=== PATIENT | female | born 1990 | race Two or more races ===

== ENCOUNTER 2023-05-31 21:38 | Emergency (ER) | payer MEDICAID ==
[~2023-05-31] VITALS: Ht 157.5 cm; Wt 84.0 kg
[2023-05-31] MEDS ORDERED: AMPICILLIN & SULBACTAM SODIUM 3 GM in SODIUM CHL 0.9% 100 ML IV SCH (22:30)
[2023-05-31 22:47] LABS: Basophils # (auto) 0 10 ^3/uL (0-0.2); Basophils % (auto) 0.4 % (0.0-2.0); Eosinophils # (auto) 0.1 10 ^3/uL (0-0.8); Eosinophils % (auto) 1.3 % (0.0-7.0); Hematocrit 27.7 % (36.0-46.0); Hemoglobin 8.6 g/dL (12.2-16.2); Lymphocytes # (auto) 1.7 10 ^3/uL (0.4-5.4); Lymphocytes % (auto) 21.7 % (10.0-50.0); Mean Corpuscular Hemoglobin 22.1 pg (28.0-32.0); Mean Corpuscular Volume 71.2 fL (80.0-100.0); Monocytes # (auto) 0.9 10 ^3/uL (0-1.3); Monocytes % (auto) 11.2 % (0.0-12.0); Neutrophils # (auto) 5.1 10 ^3/uL (1.6-8.6); Neutrophils % (auto) 65.4 % (37.0-80.0); Red Blood Cells 3.89 10^6/uL (4.0-5.20); Red Cell Distribution Width 16.6 % (11.8-14.3); White Blood Cell 7.7 10^3/uL (4.4-10.8)
[2023-05-31] MEDS ORDERED: metroNIDAZOLE 500MG/100ML 100 ML IV ONE (23:00)
[2023-05-31] MEDS ORDERED: cefTRIAXone 1GM/50ML D5W 50 ML IV ONE (23:00)
[2023-05-31 23:17] LABS: Albumin 2.9 g/dL (3.4-5.0); Calcium 7.7 mg/dL (8.5-10.1); Potassium 3.5 mmol/L (3.5-5.1)
[2023-05-31 23:19] VITALS: BP 118/71
[2023-05-31 23:19] LABS: BUN/Creatinine Ratio 29.1 (10.0-20.0)
[2023-05-31 23:22] LABS: Bilirubin, Total 0.4 mg/dL (0.2-1.0); Total Protein 6.5 g/dL (6.4-8.2)
[2023-06-01] MEDS ORDERED: IOHEXOL 350 MG/ML 100ML IJ ONE (00:19)
== END 2023-06-01 01:50 | disposition left against medical advice (07) ==
LOC: ER 21:38
DX: K04.7 Periapical abscess without sinus (principal)
CPT/HCPCS: 36415; 70487; 80053; 83605; 85025; 85652; 96365; 96368; 99285; J0696; J3490; Q9967

== ENCOUNTER 2024-02-06 15:15 | Inpatient (IN) | payer BC, MEDICAID ==
[~2024-02-06] VITALS: Ht 154.9 cm; Wt 88.0 kg
[2024-02-06 16:11] LABS: Basophils # (auto) 0.1 10 ^3/uL (0-0.2); Basophils % (auto) 0.8 % (0.0-2.0); Eosinophils # (auto) 0.1 10 ^3/uL (0-0.8); Eosinophils % (auto) 1.5 % (0.0-7.0); Hematocrit 26.5 % (36.0-46.0); Hemoglobin 7.6 g/dL (12.2-16.2); Lymphocytes # (auto) 2.6 10 ^3/uL (0.4-5.4); Lymphocytes % (auto) 33.8 % (10.0-50.0); Mean Corpuscular Hemoglobin 16.9 pg (28.0-32.0); Mean Corpuscular Hgb Conc. 28.6 g/dL (32.0-36.0); Mean Corpuscular Volume 59.1 fL (80.0-100.0); Monocytes # (auto) 0.7 10 ^3/uL (0-1.3); Monocytes % (auto) 9.3 % (0.0-12.0); Neutrophils # (auto) 4.3 10 ^3/uL (1.6-8.6); Neutrophils % (auto) 54.6 % (37.0-80.0); Red Blood Cells 4.49 10^6/uL (4.0-5.20); Red Cell Distribution Width 19.3 % (11.8-14.3); White Blood Cell 7.8 10^3/uL (4.4-10.8)
[2024-02-06 16:30] LABS: Alanine Aminotransferase 14 U/L (7-40); Albumin 4.6 g/dL (3.2-4.8); Alkaline Phosphatase 98 U/L (46-116); Anion Gap 6 (5-15); Aspartate Aminotransferase 18 U/L (13-40); BUN/Creatinine Ratio 21.2 (10.0-20.0); Bilirubin, Total 0.3 mg/dL (0.2-1.0); Blood Urea Nitrogen 14 mg/dL (9-23); Calcium 9.2 mg/dL (8.5-10.1); Carbon Dioxide 26 mmol/L (20-30); Chloride 104 mmol/L (98-107); Glucose 86 mg/dL (74-106); Potassium 4.2 mmol/L (3.5-5.1); Sodium 136 mmol/L (136-145); Total Protein 7.5 g/dL (5.7-8.2)
[2024-02-06 16:53] LABS: Lipase 40 U/L (12-53)
[2024-02-06 16:56] LABS: Anisocytosis Slight; Hypochromia Marked; Platelet Estimate Adequate; Target Cell FEW
[2024-02-06 18:22] LABS: Urine Bacteria FEW /hpf (None Seen); Urine Blood Negative /uL (Negative); Urine Clarity HAZY (Clear); Urine Color Colorless (Yellow); Urine Mucus FEW (None Seen); Urine Protein, UAD Negative (Negative); Urine Specific Gravity 1.007 (1.001-1.035); Urine Urobilinogen Normal (Negative); Urine WBC 11 /hpf (0 - 5); Urine pH 5.5 (5.0-8.0)
[2024-02-06 18:27] LABS: Amphetamine Screen, Urine Neg (NEGATIVE); Barbiturate Scree,Urine Neg (NEGATIVE); Benzodiazephine Screen, Urine Neg (NEGATIVE); Cannabinoid Screen, Urine Pos (NEGATIVE); Cocaine Screen, Urine Neg (NEGATIVE); Opiate Scree,Urine Neg (NEGATIVE); Phencyclidine Screen, Urine Neg (NEGATIVE)
[2024-02-06] MEDS ORDERED: CIPR-173 PO (19:43)
[2024-02-06] MEDS: SODIUM CHLORIDE 0.9% 1,000 ML IV ONE (22:27)
[2024-02-06 22:51] LABS: Hematocrit 23.3 % (36.0-46.0)
[2024-02-06 23:03] LABS: Hemoglobin 6.6 g/dL (12.2-16.2)
[2024-02-06] MEDS: ONDANSETRON HCL 4 MG/2 ML VIAL IV ONE (23:08)
[2024-02-06] MEDS: CIPROFLOXACIN HCL 500 MG TAB PO ONE (23:14)
[2024-02-06] MEDS ORDERED: DOCUSATE SOD 100 MG CAP PO PRN (23:15)
[2024-02-06] MEDS ORDERED: MORPHINE SULFATE INJ 2 MG/ml SYRG IV PRN ×2 (23:15)
[2024-02-06] MEDS ORDERED: HYDROcodone-ACET 5/325MG TAB PO PRN (23:15)
[2024-02-06] MEDS ORDERED: ONDANSETRON HCL 4 MG/2 ML VIAL IV PRN (23:15)
[2024-02-06] MEDS ORDERED: NITROGLYCERIN 0.4 MG SL TAB SL PRN (23:15)
[2024-02-07] VITALS (11 sets, daily range): BP systolic 90–114; BP diastolic 44–68; PULSE 62–83; RESP 15–21; TEMP 98–98.4; O2SAT 77–99
[2024-02-07 00:09] LABS: % Iron Saturation 3.4 % (15-50)
[2024-02-07 00:13] LABS: Folate (Folic Acid) > 24.00 ng/mL (>5.38)
[2024-02-07] MEDS: LACTULOSE 20Gm/30ML SOLN PO ONE (04:00)
[2024-02-07] MEDS: metroNIDAZOLE 500MG/100ML 100 ML IV SCH (07:06)
[2024-02-07 08:49] LABS: Alanine Aminotransferase 12 U/L (7-40); Albumin 3.5 g/dL (3.2-4.8); Alkaline Phosphatase 78 U/L (46-116); Anion Gap 4 (5-15); Aspartate Aminotransferase 15 U/L (13-40); BUN/Creatinine Ratio 20.3 (10.0-20.0); Bilirubin, Total 0.5 mg/dL (0.2-1.0); Blood Urea Nitrogen 12 mg/dL (9-23); Calcium 8.4 mg/dL (8.5-10.1); Carbon Dioxide 25 mmol/L (20-30); Chloride 110 mmol/L (98-107); Glucose 90 mg/dL (74-106); Potassium 3.9 mmol/L (3.5-5.1); Sodium 139 mmol/L (136-145); Total Protein 5.8 g/dL (5.7-8.2)
[2024-02-07 09:20] LABS: Basophils # (auto) 0 10 ^3/uL (0-0.2); Eosinophils # (auto) 0.1 10 ^3/uL (0-0.8); Eosinophils % (auto) 1.2 % (0.0-7.0); Hemoglobin 7.4 g/dL (12.2-16.2); Mean Corpuscular Volume 61.9 fL (80.0-100.0); Monocytes # (auto) 0.6 10 ^3/uL (0-1.3); Monocytes % (auto) 9.4 % (0.0-12.0); Nucleated Red Blood Cells % 0.1 %
[2024-02-07 09:21] LABS: Basophils % (auto) 0.7 % (0.0-2.0); Hematocrit 24.8 % (36.0-46.0); Lymphocytes % (auto) 31.8 % (10.0-50.0); Mean Corpuscular Hemoglobin 18.5 pg (28.0-32.0); Mean Corpuscular Hgb Conc. 29.8 g/dL (32.0-36.0); Neutrophils # (auto) 3.5 10 ^3/uL (1.6-8.6); Neutrophils % (auto) 56.9 % (37.0-80.0); Red Blood Cells 4.01 10^6/uL (4.0-5.20); Red Cell Distribution Width 21.7 % (11.8-14.3); White Blood Cell 6.2 10^3/uL (4.4-10.8)
[2024-02-07] MEDS: cefTRIAXone 1GM/50ML D5W 50 ML IV SCH (09:29)
[2024-02-07] MEDS: PANTOPRAZOLE 40 MG/10 ML VIAL INJ IV SCH (09:29)
[2024-02-07] MEDS: LACTULOSE 20Gm/30ML SOLN PO SCH (09:30)
[2024-02-07 11:13] LABS: INR 1.05 (0.9-1.15); Partial Thromboplastin Time 28.3 SEC (24.5-34.5)
[2024-02-07 11:21] LABS: Magnesium 1.8 mg/dL (1.6-2.6)
[2024-02-07] MEDS: IRON SUCROSE COMPLEX 100 ML IV SCH (12:29)
[2024-02-07] MEDS: ACETAMINOPHEN 325 MG TAB PO PRN (20:25)
[2024-02-08] VITALS (11 sets, daily range): BP systolic 94–116; BP diastolic 41–61; PULSE 58–87; RESP 18–20; TEMP 98.1–98.2; O2SAT 93–99
[2024-02-08 06:54] LABS: Basophils # (auto) 0 10 ^3/uL (0-0.2); Eosinophils # (auto) 0.2 10 ^3/uL (0-0.8); Hemoglobin 8.1 g/dL (12.2-16.2); Lymphocytes # (auto) 1.1 10 ^3/uL (0.4-5.4); Mean Corpuscular Hemoglobin 17.9 pg (28.0-32.0); Mean Corpuscular Volume 62.3 fL (80.0-100.0); Monocytes # (auto) 0.4 10 ^3/uL (0-1.3)
[2024-02-08 06:57] LABS: Basophils % (auto) 0.6 % (0.0-2.0); Eosinophils % (auto) 4.1 % (0.0-7.0); Hematocrit 28.1 % (36.0-46.0); Mean Corpuscular Hgb Conc. 28.8 g/dL (32.0-36.0); Monocytes % (auto) 8.7 % (0.0-12.0); Neutrophils # (auto) 3.1 10 ^3/uL (1.6-8.6); Neutrophils % (auto) 63.6 % (37.0-80.0); Nucleated Red Blood Cells % 0.1 %; Red Blood Cells 4.51 10^6/uL (4.0-5.20); White Blood Cell 4.8 10^3/uL (4.4-10.8)
[2024-02-08 07:02] LABS: Red Cell Distribution Width 21.3 % (11.8-14.3)
[2024-02-08 07:15] LABS: Alanine Aminotransferase 13 U/L (7-40); Albumin 3.8 g/dL (3.2-4.8); Alkaline Phosphatase 91 U/L (46-116); Anion Gap 8 (5-15); Aspartate Aminotransferase 20 U/L (13-40); BUN/Creatinine Ratio 10.2 (10.0-20.0); Blood Urea Nitrogen 6 mg/dL (9-23); Calcium 8.6 mg/dL (8.5-10.1); Carbon Dioxide 23 mmol/L (20-30); Chloride 110 mmol/L (98-107); Glucose 75 mg/dL (74-106); Potassium 3.8 mmol/L (3.5-5.1); Sodium 141 mmol/L (136-145)
[2024-02-08 07:16] LABS: Bilirubin, Total 0.6 mg/dL (0.2-1.0); Total Protein 6.3 g/dL (5.7-8.2)
[2024-02-08] MEDS ORDERED: SODIUM CHLORIDE LOCK 10 ML ONE (09:17)
[2024-02-08] MEDS ORDERED: diphenhdrAMINE HCL 50 MG/1 ML VL ONE (09:18)
[2024-02-08] MEDS ORDERED: FLUMAZENIL 0.1 MG/ML INJ 10ML MDV IV ONE (09:19)
[2024-02-08] MEDS ORDERED: NALOXONE HCL 0.4 MG/ML VIAL ONE (09:19)
[2024-02-08] MEDS ORDERED: LIDOCAINE VISCOUS 2% 15ML UD ONE (09:19)
[2024-02-08] MEDS: fentaNYL CITRATE 100 MCG/2 ML VL ONE (14:04)
[2024-02-08] MEDS: MIDAZOLAM HCL 5 MG/ML-1ML VIAL ONE (14:04)
[2024-02-08] MEDS: metroNIDAZOLE 500 MG TAB PO SCH (21:17)
[2024-02-08] MEDS: SUCRALFATE 1 GM TAB PO SCH (21:17)
[2024-02-09] VITALS (8 sets, daily range): BP systolic 97–112; BP diastolic 40–72; PULSE 20–82; RESP 16–20; TEMP 97.3–98.4; O2SAT 93–100
[2024-02-09 06:40] LABS: Basophils # (auto) 0 10 ^3/uL (0-0.2); Eosinophils # (auto) 0.2 10 ^3/uL (0-0.8); Hematocrit 23.8 % (36.0-46.0); Lymphocytes # (auto) 1.4 10 ^3/uL (0.4-5.4); Mean Corpuscular Hemoglobin 18.1 pg (28.0-32.0); Neutrophils # (auto) 2.7 10 ^3/uL (1.6-8.6); Nucleated Red Blood Cells % 0.2 %; White Blood Cell 4.9 10^3/uL (4.4-10.8)
[2024-02-09 06:44] LABS: Basophils % (auto) 0.4 % (0.0-2.0); Eosinophils % (auto) 3.9 % (0.0-7.0); Mean Corpuscular Hgb Conc. 29.3 g/dL (32.0-36.0); Mean Corpuscular Volume 61.8 fL (80.0-100.0); Monocytes # (auto) 0.6 10 ^3/uL (0-1.3); Monocytes % (auto) 11.8 % (0.0-12.0); Neutrophils % (auto) 55.9 % (37.0-80.0); Red Blood Cells 3.86 10^6/uL (4.0-5.20)
[2024-02-09 06:55] LABS: Alanine Aminotransferase 12 U/L (7-40); Albumin 3.3 g/dL (3.2-4.8); Alkaline Phosphatase 81 U/L (46-116); Anion Gap 6 (5-15); Aspartate Aminotransferase 19 U/L (13-40); BUN/Creatinine Ratio 11.1 (10.0-20.0); Bilirubin, Total 0.3 mg/dL (0.2-1.0); Blood Urea Nitrogen 6 mg/dL (9-23); Calcium 8.3 mg/dL (8.5-10.1); Carbon Dioxide 23 mmol/L (20-30); Chloride 111 mmol/L (98-107); Glucose 69 mg/dL (74-106); Potassium 3.6 mmol/L (3.5-5.1); Sodium 140 mmol/L (136-145); Total Protein 5.4 g/dL (5.7-8.2)
[2024-02-09 07:20] LABS: Red Cell Distribution Width 21.1 % (11.8-14.3)
[2024-02-09 08:01] LABS: Platelet Estimate Adequate
[2024-02-09 08:02] LABS: Anisocytosis Slight; Hypochromia Marked
[2024-02-09] MEDS ORDERED: VANCOMYCIN PER PHARMACY 0 MG IV SCH (11:00)
[2024-02-09] MEDS ORDERED: VANCOMYCIN 1GM/200ML 200 ML IV ONE (11:00)
[2024-02-09 13:22] LABS: Hematocrit 25.7 % (36.0-46.0); Hemoglobin 7.3 g/dL (12.2-16.2)
[2024-02-09] MEDS: LINEZOLID 600MG/300ML 300 ML IV SCH (15:22)
[2024-02-09] MEDS: PANTOPRAZOLE 40 MG/10 ML VIAL INJ IV ONE (15:22)
[2024-02-09] MEDS: SUCRALFATE 1 GM/10 ML ORAL SUSP PO ONE (15:22)
[2024-02-10 01:00] VITALS: BP 99/49; PULSE 68; RESP 18; TEMP 98.1; O2SAT 97
[2024-02-10 05:00] VITALS: BP 99/58; PULSE 64; RESP 16; TEMP 98; O2SAT 98
[2024-02-10 06:17] LABS: Basophils # (auto) 0 10 ^3/uL (0-0.2); Basophils % (auto) 0.6 % (0.0-2.0); Lymphocytes # (auto) 1.6 10 ^3/uL (0.4-5.4); Mean Corpuscular Volume 62.6 fL (80.0-100.0); Monocytes # (auto) 0.5 10 ^3/uL (0-1.3)
[2024-02-10 06:24] LABS: Eosinophils # (auto) 0.2 10 ^3/uL (0-0.8); Eosinophils % (auto) 2.5 % (0.0-7.0); Hematocrit 23.9 % (36.0-46.0); Hemoglobin 7.3 g/dL (12.2-16.2); Mean Corpuscular Hgb Conc. 30.4 g/dL (32.0-36.0); Monocytes % (auto) 7.5 % (0.0-12.0); Neutrophils # (auto) 4.2 10 ^3/uL (1.6-8.6); Neutrophils % (auto) 64.4 % (37.0-80.0); Nucleated Red Blood Cells % 0.2 %; Red Blood Cells 3.83 10^6/uL (4.0-5.20); Red Cell Distribution Width 21.4 % (11.8-14.3); White Blood Cell 6.5 10^3/uL (4.4-10.8)
[2024-02-10 06:35] LABS: Albumin 3.3 g/dL (3.2-4.8); Alkaline Phosphatase 75 U/L (46-116); Anion Gap 7 (5-15); Aspartate Aminotransferase 14 U/L (13-40); BUN/Creatinine Ratio 11.7 (10.0-20.0); Bilirubin, Total 0.3 mg/dL (0.2-1.0); Blood Urea Nitrogen 7 mg/dL (9-23); Calcium 8.3 mg/dL (8.7-10.4); Carbon Dioxide 23 mmol/L (20-30); Chloride 109 mmol/L (98-107); Glucose 82 mg/dL (74-106); Magnesium 1.8 mg/dL (1.6-2.6); Potassium 3.8 mmol/L (3.5-5.1); Sodium 139 mmol/L (136-145); Total Protein 5.7 g/dL (5.7-8.2)
[2024-02-10 06:36] LABS: Alanine Aminotransferase < 9 U/L (7-40)
[2024-02-10 06:56] LABS: Erythrocyte Sedimentation Rate 17 mm/hr (0-20)
[2024-02-10 07:38] LABS: Anisocytosis Slight; Hypochromia Marked; Platelet Estimate Adequate
[2024-02-10 07:40] LABS: Target Cell FEW
[2024-02-10 08:00] VITALS: PULSE 76
[2024-02-10 09:00] VITALS: BP 98/49; PULSE 100; RESP 18; TEMP 98.3; O2SAT 98
[2024-02-10] MEDS: IOHEXOL 300 MG/ML 100ML BOTTLE IJ ONE (10:45)
[2024-02-10 11:49] VITALS: BP 104/60; PULSE 58; RESP 18; TEMP 98.4; O2SAT 96
[2024-02-10] MEDS ORDERED: BACDST PO (14:23)
[2024-02-10] MEDS ORDERED: SUCR1TAB PO (14:23)
[2024-02-10] MEDS ORDERED: PANT40TA2 PO (14:23)
[2024-02-10] MEDS ORDERED: FER325T PO (14:23)
[2024-02-10] MEDS ORDERED: LINE1TAB6 PO (16:03)
[2024-02-10 17:00] VITALS: BP 118/67; PULSE 61; RESP 18; TEMP 98.5; O2SAT 96
== END 2024-02-10 18:26 | disposition home or self-care (01) | DRG 391 ==
LOC: ER 15:15 → TELE 23:38 → TELE-WESTW 23:38
PROVIDERS: ADMIT Internal Medicine; ATTEND Internal Medicine
PROC: 30233N1 Transfusion of Nonautologous Red Blood Cells into Peripheral Vein, Percutaneous Approach (ICD-10-PCS; principal; 2024-02-07)
PROC: 0DJ08ZZ Inspection of Upper Intestinal Tract, Via Natural or Artificial Opening Endoscopic (ICD-10-PCS; 2024-02-08)
DX: K52.9 Noninfective gastroenteritis and colitis, unspecified (principal); K25.4 Chronic or unspecified gastric ulcer with hemorrhage; N30.00 Acute cystitis without hematuria; K59.00 Constipation, unspecified; F17.290 Nicotine dependence, other tobacco product, uncomplicated; D50.9 Iron deficiency anemia, unspecified; B95.62 Methicillin resistant Staphylococcus aureus infection as the cause of diseases classified elsewhere; I88.0 Nonspecific mesenteric lymphadenitis; E66.9 Obesity, unspecified; I10 Essential (primary) hypertension; Z98.84 Bariatric surgery status; Z90.49 Acquired absence of other specified parts of digestive tract; Z83.3 Family history of diabetes mellitus; Z82.49 Family history of ischemic heart disease and other diseases of the circulatory system; Z88.2 Allergy status to sulfonamides; Z68.36 Body mass index [BMI] 36.0-36.9, adult
CPT/HCPCS: 36415; 43235; 71045; 74177; 80053; 80061; 80307; 81001; 82150; 82270; 82607; 82728; 82746; 83010; 83540; 83550; 83605; 83615; 83690; 83735; 84443; 84484; 84702; 85014; 85018; 85025; 85045; 85048; 85610; 85652; 85730; 86141; 86850; 86900; 86901; 86920; 87086; 93005; 93971; 96360; C9113; G0378; J1756; J2250; J3490

== ENCOUNTER 2025-09-11 14:44 | Emergency (ER) | payer BC, MEDICAID, OTHER ==
[~2025-09-11] VITALS: Ht 157.5 cm; Wt 86.3 kg
[~2025-09-11 14:44] MED LIST: FER325T PO; LINE1TAB6 PO; PANT40TA2 PO; SUCR1TAB PO
[2025-09-11 14:45] VITALS: BP 122/76; RESP 20; TEMP 99.2; O2SAT 100
--- NOTE | 2025-09-11 14:56 | ECG ---
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
[2025-09-11 14:58] VITALS: PULSE 79
--- NOTE | 2025-09-11 14:58 | ED.PDOC ---
HPI Comments This is a 35 year old female presenting to the ED with chief complaint of palpitations. Patient reports that she began to experience substernal chest pressure since earlier today along with associated SOB and palpitations for the past 2 weeks. Patient relays that she has had previous episodes of palpitations. Patient denies any N/V, abdominal pain, cough, dizziness, fever, chills, or anxiety. Chief Complaint: Palpitations Time Seen by MD: 14:55 Primary Care Provider: Unknown Reviewed Notes: Nurses Notes, Medications, Allergies Allergies: Coded Allergies: Sulfa Antibiotics (Verified Allergy, Unknown, General body itchiness, 02/07/24) Home Meds Active Scripts Linezolid (Zyvox) 600 Mg Tab, 600 MG PO BID for 7 Days, #14 TAB Prov:MYRNA RENEE [facility] 02/10/24 Pantoprazole Sodium Sesquihydr (Protonix) 40 Mg Tab, 40 MG PO BID for 14 Days, #28 TAB Prov:MYRNA RENEE [facility] 02/10/24 Ferrous Sulfate (FERROUS SULFATE) 325 Mg Tb, 1 TAB PO BID for 30 Days, #60 TAB 3 Refills Prov:MYRNA RENEE [facility] 02/10/24 Sucralfate (Sucralfate) 1 Gm Tab, 1 GM PO QIDACHS for 30 Days, #120 TAB 2 Refills Prov:NI JARVISMYRNA TURCIOS [facility] 02/10/24 Information Source: Patient Mode of Arrival: Ambulatory Severity: Moderate Timing: Days Duration: Since onset Prehospital treatment: None Location: Substernal Radiation: No Radiation Quality: Pressure Onset: At Rest Cardiac Risk Factors: Family History PE Risk Factors: None History of: None Associated Signs and Symptoms: SOB, Palpitations Past Medical History PAST MEDICAL HISTORY: Denies Surgical History (Other): 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 History Family History Family History: Reviewed,noncontributory to illness, Family hx of DM, Family hx of Cancer, Family hx of HTN Social History Smoker: Other (Vapes) Alcohol: Denies ETOH Use Drugs: Marijuana Lives In: Home Constitutional: denies: chills, diaphoresis, fatigue, fever, malaise, sweats, weakness, others EENTM: denies: blurred vision, double vision, ear bleeding, ear discharge, ear drainage, ear pain, ear ringing, eye pain, eye redness, hearing loss, mouth pain, mouth swelling, nasal discharge, nose bleeding, nose congestion, nose pain, photophobia, tearing, throat pain, throat swelling, voice changes, others Respiratory: reports: shortness of breath; denies: cough, hemoptysis, orthopnea, SOB at rest, SOB with excertion, stridor, wheezing, others Cardiovascular: reports: chest pain, palpitations; denies: dizzy spells, diaphoresis, Dyspnea on exertion, edema, irregular heart beat, left arm pain, lightheadedness, PND, syncope, others Gastrointestinal: denies: abdomen distended, abdominal pain, blood streaked bowels, constipated, diarrhea, dysphagia, difficulty swallowing, hematemesis, melena, nausea, poor appetite, poor fluid intake, rectal bleeding, rectal pain, vomiting, others Genitourinary: denies: abnormal vagina bleeding, burning, dyspareunia, dysuria, flank pain, frequency, hematuria, incontinence, pain, , vagina discharge, urgency, others Neurological: denies: dizziness, fainting, headache, left sided numbness, left sided weakness, numbness, paresthesia, pre-existing deficit, right sided numbness, right sided weakness, seizure, speech problems, tingling, tremors, weakness, others Musculoskeletal: denies: back pain, gout, joint pain, joint swelling, muscle pain, muscle stiffness, neck pain, others Integumetry: denies: bruises, change in color, change in hair/nails, dryness, laceration, lesions, lumps, rash, wounds, others Allergic/Immunocompromised: denies: Difficulty Healing, Frequent Infections, Hives, Itching, others Hematologic/Lymphatic: denies: anemia, blood clots, easy bleeding, easy bruising, swollen glands, others Endocrine: denies: excessive hunger, excessive sweating, excessive thirst, excessive urination, flushing, intolerance to cold, intolerance to heat, unexplained weight gain, unexplained weight loss, others Psychiatric: denies: anxiety, bipolar disorder, depression, hopeless, panic disorder, schizophrenia, sleepless, suicidal, others All Other Systems: Reviewed and Negative Physical Exam General Appearance: No Apparent Distress HEENT: Normal ENT Inspection, Pharynx Normal, TMs Normal Neck: Full Range of Motion, Non-Tender, Normal, Normal Inspection Respiratory: Chest Non-Tender, Lungs Clear, No Accessory Muscle Use, No Respiratory Distress, Normal Breath Sounds Cardiovascular: No Edema, No JVD, No Murmur, No Gallop, Normal Peripheral Pulses, Regular Rate/Rhythm Breast Exam: Deferred Gastrointestinal: No Organomegaly, Non Tender, No Pulsatile Mass, Normal Bowel Sounds, Soft Genitalia: Deferred Pelvic: Deferred Rectal: Deferred Extremities: No calf tenderness, Normal capillary refill, Normal inspection, Normal range of motion, Non-tender, No pedal edema Musculoskeletal : Apperance: Normal Neurologic: Alert, 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 Was a procedure done?: No CP Differential Dx Differential Diagnosis: Angina, IL, PAC's X-Ray, Labs, Meds, VS Vital Signs Date Time Temp Pulse Resp B/P (MAP) Pulse Ox O2 Delivery O2 Flow Rate FiO2 09/11/25 14:58 79 09/11/25 14:52 79 09/11/25 14:45 99.2 70 20 122/76 100 99.2 Lab Test 09/11/25 15:48 09/11/25 15:05 Range/Units Troponin I High Sensitivity < 3 L < 3 L </=34 ng/L White Blood Count 8.1 4.4-10.8 10^3/uL Red Blood Count 4.37 4.0-5.20 10^6/uL Hemoglobin 8.0 L 12.2-16.2 g/dL Hematocrit 26.5 L 36.0-46.0 % Mean Corpuscular Volume 60.7 L 80.0-100.0 fL Mean Corpuscular Hemoglobin 18.3 L 28.0-32.0 pg Mean Corpuscular Hemoglobin Concent 30.1 L 32.0-36.0 g/dL Red Cell Distribution Width 18.8 H 11.8-14.3 % Platelet Count 367 140-450 10^3/uL Mean Platelet Volume 8.5 6.9-10.8 fL Neutrophils (%) (Auto) 66.6 37.0-80.0 % Lymphocytes (%) (Auto) 24.2 10.0-50.0 % Monocytes (%) (Auto) 6.4 0.0-12.0 % Eosinophils (%) (Auto) 2.0 0.0-7.0 % Basophils (%) (Auto) 0.8 0.0-2.0 % Neutrophils # (Auto) 5.4 1.6-8.6 10 ^3/uL Lymphocytes # (Auto) 2.0 0.4-5.4 10 ^3/uL Monocytes # (Auto) 0.5 0-1.3 10 ^3/uL Eosinophils # (Auto) 0.2 0-0.8 10 ^3/uL Basophils # (Auto) 0.1 0-0.2 10 ^3/uL Nucleated Red Blood Cells 0.1 % Sodium Level 141 136-145 mmol/L Potassium Level 4.7 3.5-5.1 mmol/L Chloride Level 106 98-107 mmol/L Carbon Dioxide Level 26 20-31 mmol/L Anion Gap 9 5-15 Blood Urea Nitrogen 11 9-23 mg/dL Creatinine 0.78 0.550-1.02 mg/dL Glomerular Filtration Rate Calc 102 >90 mL/min BUN/Creatinine Ratio 14.1 10.0-20.0 Serum Glucose 105 74-106 mg/dL Calcium Level 8.7 8.7-10.4 mg/dL The patient had a CBC showing anemia with a hemoglobin of 8.0 and hematocrit 26.5 The chemistry panel is within normal limits At this time, the patient has eloped from the department's. We are attempting to get a chest x-ray but the patient has eloped Images Reviewed?: Images reviewed and evaluated by me Time of 1ST Reevaluation: 19:06 Reevaluation 1ST: The patient has eloped fr Patient Education/Counseling: Diagnosis, Treatment, Prognosis Family Education/Counseling: No Family Present SEPSIS Sepsis Screen Date sepsis recognized/suspect: Sep 11, 2025 Time Sepsis recognized/suspect: 6 Recent Procedure: No On Antibiotic Therapy: No Respiratory Rate >20: No Heart Rate >90: No Temp<36 C (96.8 F) or >38.3 C: No SBP <90 or MAP <65 mmHG: No New Acute Mental Status Change: No Is the patient on CPAP, BIPAP,: No Physician Orders Chest Two Views Routine (10/16/25 14:51) Urinalysis (09/11/25 14:51) Test, Urine (09/11/25 14:51) Vital Signs Date Time Temp Pulse Resp B/P (MAP) Pulse Ox O2 Delivery O2 Flow Rate FiO2 09/11/25 14:58 79 09/11/25 14:52 79 09/11/25 14:45 99.2 70 20 122/76 100 99.2 Laboratory Tests Test 09/11/25 15:05 White Blood Count 8.1 10^3/uL (4.4-10.8) Departure 1 Departure Time of Disposition: 19:06 Impression: Primary Impression: Palpitations Disposition: 07 LEFT AWOL/ELOPED Condition: Fair Critical Care Note Critical Care Time?: No Stability Stability form required: No Heart Score Heart Score: Heart Score Response (Comments) Value History Moderate Suspicious 1 EKG Normal 0 Age <45 0 Risk Factors No known risk factors 0 Troponin Normal limit 0 Total 1 I personally scribed for ONEIDA BRITTON MD ([email or web address]) on 09/11/25 at 14:58. Electronically submitted by Heron Sexton ([email or web address]). ONEIDA BRITTON MD Sep 11, 2025 14:58
[2025-09-11 15:16] LABS: Nucleated Red Blood Cells % 0.1 %
[2025-09-11 15:17] LABS: Hematocrit 26.5 % (36.0-46.0); Hemoglobin 8.0 g/dL (12.2-16.2); Mean Corpuscular Hemoglobin 18.3 pg (28.0-32.0); Mean Corpuscular Volume 60.7 fL (80.0-100.0)
[2025-09-11 15:26] LABS: Chloride 106 mmol/L (98-107); Potassium 4.7 mmol/L (3.5-5.1); Sodium 141 mmol/L (136-145)
[2025-09-11 15:27] LABS: Anion Gap 9 (5-15); Calcium 8.7 mg/dL (8.7-10.4); Carbon Dioxide 26 mmol/L (20-31)
[2025-09-11 15:32] LABS: BUN/Creatinine Ratio 14.1 (10.0-20.0); Blood Urea Nitrogen 11 mg/dL (9-23); Glucose 105 mg/dL (74-106)
== END 2025-09-11 19:20 | disposition left against medical advice (07) ==
LOC: ER 14:44
DX: R00.2 Palpitations (principal); F12.90 Cannabis use, unspecified, uncomplicated; F17.290 Nicotine dependence, other tobacco product, uncomplicated; Z79.899 Other long term (current) drug therapy; Z98.84 Bariatric surgery status; Z88.2 Allergy status to sulfonamides
CPT/HCPCS: 36415; 80048; 84484; 85025; 93005